=== PATIENT | male | born 1965 | race Caucasian/White ===

== ENCOUNTER 2016-10-04 18:05 | Emergency (ER) | payer OTHER ==
[~2016-10-04] VITALS: Ht 162.6 cm; Wt 86.6 kg
[2016-10-04] MEDS ORDERED: LEVOTHYROXINE137 MCG PO (18:27)
[2016-10-04] MEDS ORDERED: OMEPRAZOLE40 M1 PO (18:27)
[2016-10-04] MEDS ORDERED: VITAMIN D2000 UNI1 PO (18:27)
[2016-10-04] MEDS ORDERED: ATORVASTATIN CA20 M1 PO (18:27)
--- NOTE | 2016-10-04 18:27 | ED CARDIAC/CP/PALPITATIONS ---
History of Present Illness General Chief Complaint: Chest Pain Stated Complaint: CP X 1HR Source: patient, old records Exam Limitations: no limitations Vital Signs & Intake/Output Vital Signs & Intake/Output Vital Signs Date Time Temp Pulse Resp B/P B/P Pulse O2 O2 Flow FiO2 Mean Ox Delivery Rate 10/04 2302 80 20 111/61 100 Room Air 10/043 94 18 126/70 98 Room Air 10/04 1848 90 20 118/68 98 10/04 1841 98 Room Air 10/04 1818 97.1 102 16 115/80 98 Room Air Room Air Allergies Coded Allergies: No Known Allergies (10/04/16) Reconcile Medications Atorvastatin Calcium 20 MG TABLET 1 TAB PO DAILY CHOLESTEROL (Reported) Cholecalciferol (Vitamin D3) (Vitamin D) (Unknown Strength) TABLET (Unknown Dose) PO DAILY SUPPLEMENT (Reported) Levothyroxine Sodium 137 MCG TABLET 1 TAB PO DAILY THYROID (Reported) Omeprazole 40 MG CAPSULE.DR 1 CAP PO DAILY GI (Reported) Triage Note: PT TO TRIAGE WITH CHETS TIGHTNESS AND WHILE WALKING HAD A FEELING OF LIGHTHEADNESS, DIZZY AND SWEATING. PT STATES HE FELT THE SAME LAST NIGHT WHILE LAYING ONHTE COUCH. PT HAS NO CARDIAC HX. SKIN WARM AND DRY. PT DENIES TORUBLE BREATHING Triage Nurses Notes Reviewed? yes Onset: Abrupt Duration: minute(s):, better, resolved prior to arrival Timing: recent history Quality/Severity: mild, aching, pressure Location: RIGHT SIDED Radiation: no radiation Activities at Onset: none Prior Chest Pain/Card Workup: no prior chest pain Aspirin Today: 325 mg x 1, provided by ED Associated Symptoms: DIZZINESS HPI: 51-year-old male with history of hypothyroid, high cholesterol presents to ER for evaluation status post developing 2 episodes of intermittent ear the first episode came on while at rest watching TV last night. He states that he slept fine THIS morning when about his day without any complaints. He states about 45 minutes ago while walking around the store with his mother he began to feel dizzy and had similar symptoms which resolved on its own he has not taken anything for his symptoms denies any complaints at this time. No history of heart problems in the past however his father had a heart attack at 50. He does not smoke he states he had 2 years this afternoon while mowing the lawn. No other drug use he denies any other complaints at this time. Symptoms are not worse with exertion no pain with inspiration no cough no hemoptysis no dyspnea no abdominal pain Past History Travel History Traveled to [place] past 21 day No Medical History Any Pertinent Medical History? see below for history Neurological: NONE EENT: NONE Cardiovascular: hyperlipidemia Respiratory: NONE Gastrointestinal: NONE Hepatic: NONE Renal: NONE Musculoskeletal: NONE Psychiatric: NONE Endocrine: hypothyroidism Blood Disorders: NONE Cancer(s): NONE Surgical History Surgical History: non-contributory Psychosocial History What is your primary language Finnish Tobacco Use: Never used ETOH Use: occasional use Illicit Drug Use: denies illicit drug use Family History Hx Contributory? No Review of Systems Review of Systems Constitutional: Reports: see HPI. All Other Systems: Reviewed and Negative Comments Review of systems: See HPI, All other systems negative. Constitutional, no chills no fever, no malaise HEENT: No visual changes no sore throat no congestion, Cardiovascular: chest pain , no palpitation Skin: no rashes, no change in skin Respiratory: No dyspnea no cough no sputum GI: No nausea no vomiting, no diarrhea, : No dysuria No hematuria, Muscle skeletal: No joint pain, no joint swelling, no back pain, no neck pain, Neurologic: no headache Psych: No stress . Heme/endocrine: No bruising Immunology: No lymphadenopathy Physical Exam Physical Exam General Appearance: well developed/nourished, no apparent distress, alert Cardiovascular: regular rate/rhythm Comments: Well-developed well-nourished person in no acute distress HEENT: Normal EENT exam; PERRL, EOMI,HEAD is atraumatic. moist mucous membranes. Neck: Supple, normal range of motio Back: Nontender, no CVA tenderness. Full range of motion Cardiovascular: Regular rate and rhythms no murmurs rubs Respiratory: Chest nontender.There were no bony deformities, no asymmetry. No respiratory distress. Patient speaking in full complete sentences. Breath sounds clear to auscultation bilaterally: NO W/R/R Abdomen: Soft, nontender nondistended, no appreciable organomegaly. Normal bowel sounds. No rebound/guarding Extremity: No edema, full range of motion of extremities Neuro: Alert oriented x3, motor sensory normal, There were no obvious focal neurologic abnormalities. Skin: No appreciable rash on exposed skin, skin is warm and dry. Psych: Mood and affect is normal, memory and judgment is normal. Core Measures ACS in differential dx? Yes Severe Sepsis Present: No Septic Shock Present: No Progress Differential Diagnosis: AMI, atrial fibrillation, CHF/pulm edema, costochondritis, musculoskeletal pain, myocarditis, pancreatitis, pericarditis, pneumonia, pneumothorax, PSVT, pulmonary embolism, PVCs/PACs, unstable angina Plan of Care: Orders Procedure Date/time Status Regular Diet 10/05 B Active TROPONIN LEVEL 10/04 223 Complete EKG 10/04 223 Active Add-on Test (ER Only) 10/04 191 Active ETHANOL 10/04 1855 Complete Telemetry/Box Car Checker 10/04 183 Active TROPONIN LEVEL 10/04 1831 Complete MAGNESIUM 10/04 183 Complete LIPID PANEL 10/04 183 Complete COMPREHENSIVE METABOLIC PANEL 10/04 183 Complete CBC WITHOUT DIFFERENTIAL 10/04 1830 Complete EKG 10/04 1806 Active Laboratory Tests 10/04/16 2200: Troponin I < 0.01 10/04/161854: Anion Gap 13, Estimated GFR > 60, BUN/Creatinine Ratio 14.2, Glucose 94, Calcium 9.9, Magnesium 2.0, Total Bilirubin 1.0, AST 25, ALT 59, Alkaline Phosphatase 73 , Troponin I < 0.01, Total Protein 7.7, Albumin 4.7, Globulin 3.0, Albumin/ Globulin Ratio 1.6, Triglycerides 153 H, Cholesterol 141, LDL Cholesterol, Calc 71, HDL Cholesterol 40, Cholesterol/HDL Ratio 3, CBC w Diff NO MAN DIFF REQ, RBC 5.05, MCV 91.5, MCH 30.6, RDW 13.6, MPV 8.5, Gran % 66.8, Lymphocytes % 23.0, Monocytes % 8.8, Eosinophils % 1.0, Basophils % 0.4, Absolute Granulocytes 5.7, Absolute Lymphocytes 2.0, Absolute Monocytes 0.8 H, Absolute Eosinophils 0.1, Absolute Basophils 0, PUBS MCHC 33.5, Serum Alcohol < 10.0 LABS ORDERED, OLD RECORDS REVIEWED, PT DENIES ANY COMPLAINTS AT THIS TIME 1950 discussed with the patient at length all of his results today need for repeat troponin patient has been normal sinus on the monitor here without any complaints case was discussed with Dr. Mayer agrees with plan 2119 patient has been asymptomatic since coming into the ER. Continues to be normal sinus on the monitor pending repeat troponin case and ekg reviewed with dr moya agrees with plan I discussed with the patient at length all of their results. I had an extensive conversation regarding need for close follow up with their primary care physician/as well as drawing kiln operator this week as well as return precautions. I answered all of their questions, they feel comfortable with the plan and follow- up care. (ABIGAIL DARLING,ENEIDA) Diagnostic Imaging: Viewed by Me: Radiology Read. Discussed w/RAD: Radiology Read. Radiology Impression: PATIENT: VANDA FONTANA PRESENT AGE: 51 PATIENT ACCOUNT NO: [id number] : 67 LOCATION: [facility] ORDERING PHYSICIAN: ENEIDA DARLING SERVICE DATE: 10/04/16 EXAM TYPE: RAD - XRY-PORTABLE CHEST XRAY EXAMINATION: XR PORTABLE CHEST CLINICAL INFORMATION: Right-sided chest pain. COMPARISON: Chest x-ray 04-15. TECHNIQUE : Portable frontal view of the chest was obtained. FINDINGS: The lungs are well- expanded and clear without focal airspace consolidation. No pleural effusions or pneumothoraces are identified. Cardiomediastinal contours are within normal limits. Soft tissues are unremarkable. No acute osseous abnormality is identified. IMPRESSION: No acute pulmonary process. DICTATED BY: HEATHER LINDSEY MD DATE/TIME DICTATED:10/04/161934 ROTARY ENGINE ASSEMBLER:SHELBY DATE/TIME TRANSCRIBED:10/04/161934 CONFIDENTIAL, DO NOT COPY WITHOUT APPROPRIATE AUTHORIZATION. <Electronically signed in Other Vendor System> SIGNED BY: HEATHER LINDSEY MD 10/04/161938 Initial ED EKG: normal intervals, normal p-waves, normal QRS complex, normal sinus rhythm (80) Prior EKG: unchanged Repeat EKG: unchanged Rhythm Strip: normal sinus rhythm Departure Departure Time of Disposition: 2258 Disposition: HOME OR SELF CARE Condition: Stable Clinical Impression Primary Impression: Atypical chest pain Referrals: PATIENT HAS NO PRIMARY CARE DR SHADE PITTS PhD,ROBERT Deirdre Additional Instructions: Follow-up with drawing kiln operator Dr. LAGUERRE this week. Return to ER anytime sooner with any concerns. Departure Forms: Customer Survey General Discharge Information Critical Care Note Critical Care Note Critical Care Time: non-applicable
[2016-10-04 19:03] LABS: ABSOLUTE BASOPHIL COUNT 0 /CUMM (0.0-0.2); ABSOLUTE EOSINOPHIL COUNT 0.1 /CUMM (0.0-0.7); ABSOLUTE GRANULOCYTE CT 5.7 /CUMM (1.4-6.5); ABSOLUTE MONOCYTE COUNT 0.8 /CUMM (0.10-0.60); BASOPHIL % 0.4 % (0.0-2.0); GRANULOCYTE % 66.8 % (42.2-75.2); HEMATOCRIT 46.2 % (42-52); MEAN CORPUSCULAR HGB 30.6 PG (27.0-31.0); MEAN CORPUSCULAR HGB CONC 33.5 G/DL (33.0-37.0); MEAN CORPUSCULAR VOLUME 91.5 FL (80.0-94.0); MEAN PLATELET VOLUME 8.5 FL (7.4-10.4); PLATELET COUNT 210 /CUMM (130-400); RBC DISTRIBUTION WIDTH 13.6 % (11.5-14.5); RED BLOOD CELL CT 5.05 /CUMM (4.70-6.10); WHITE BLOOD CELL COUNT 8.6 /CUMM (4.8-10.8)
--- NOTE | 2016-10-04 19:39 | RADIOLOGY REPORT ---
EXAMINATION: XR PORTABLE CHEST CLINICAL INFORMATION: Right-sided chest pain. COMPARISON: Chest x-ray 04-15. TECHNIQUE: Portable frontal view of the chest was obtained. FINDINGS: The lungs are well-expanded and clear without focal airspace consolidation. No pleural effusions or pneumothoraces are identified. Cardiomediastinal contours are within normal limits. Soft tissues are unremarkable. No acute osseous abnormality is identified. IMPRESSION: No acute pulmonary process.
[2016-10-04 23:02] VITALS: BP 111/61
== END 2016-10-04 23:03 ==
LOC: ERH 18:05
PROVIDERS: Physician Assistant Medical
DX: R07.89 Other chest pain (principal)
CPT/HCPCS: 93005; 93010; G0480

== ENCOUNTER 2017-08-31 05:24 | Emergency (ER) | payer OTHER ==
[~2017-08-31] VITALS: Ht 162.6 cm; Wt 90.7 kg
[~2017-08-31 05:24] MED LIST: ATORVASTATIN CA20 M1 PO; LEVOTHYROXINE137 MCG PO; OMEPRAZOLE40 M1 PO; POLYTRIM EYE DR10 ML OPH; VITAMIN D2000 UNI1 PO
--- NOTE | 2017-08-31 05:36 | ED DYSPNEA/ASTHMA COMPLAINT ---
History of Present Illness General Chief Complaint: Dyspnea (COPD, CHF, Other) Stated Complaint: "I STOPPED BREATHING THIS MORNING" Source: patient Exam Limitations: no limitations Vital Signs & Intake/Output Vital Signs & Intake/Output Vital Signs Date Time Temp Pulse Resp B/P B/P Pulse O2 O2 Flow FiO2 Mean Ox Delivery Rate 08/31 0858 98.1 66 18 119/80 98 Room Air 08/31 0751 97.9 66 18 124/83 99 Room Air 08/31 0532 99 Room Air 08/31 0529 97.6 78 18 142/71 98 Room Air Allergies Coded Allergies: No Known Allergies (10/04/16) Triage Note: PT FROM HOME C/O "I STOPPED BREATHING" PT STATES AROUND 0400 PT WAS SLEEPING AND AWOKE BY NOT BREATHING. PTS VSS. PT STATES S/S OF DIZZINESS AND ROSS. PT DENIES CP, SOB, JAW OR BACK PAIN. PT STATES LEFT ARM NUMBNESS/TINGLING. PT A&0X3. Triage Nurses Notes Reviewed? yes Onset: Abrupt Duration: 2 second episode Timing: single episode today Severity: moderate Activities at Onset: sleep Prior Episodes/Possible Cause: no prior episodes Modifying Factors: Improves With: rest. Associated Symptoms: diaphoresis HPI: 52 yo gentleman in prior good health presents with 2 second episode prior to arrival of chest squeezing, associated with dizziness, diaphoresis, and "couldn't breath." He notes that the symptoms resolved, and that he now feels well, "but I got really scared, like something bad was happeneing. He notes no fever, chills, headache, wheezing, cough, reflux type symptoms. He is otherwise well. (Joseline PITTS,Rory Carmichael) Reconcile Medications Atorvastatin Calcium 20 MG TABLET 1 TAB PO DAILY CHOLESTEROL (Reported) Levothyroxine Sodium 137 MCG TABLET 1 TAB PO DAILY AC THYROID (Reported) (Buster Christine DO) Past History Travel History Traveled to [place] past 21 day No Medical History Any Pertinent Medical History? see below for history Neurological: NONE EENT: NONE Cardiovascular: hyperlipidemia Respiratory: NONE Gastrointestinal: NONE Hepatic: NONE Renal: NONE Musculoskeletal: NONE Psychiatric: NONE Endocrine: hypothyroidism Blood Disorders: NONE Cancer(s): NONE Tetanus Vaccine: 03/18/17 Surgical History Surgical History: non-contributory Psychosocial History What is your primary language Turkish Tobacco Use: Never used Family History Hx Contributory? No (Rory Trevizo MD) Review of Systems Review of Systems Constitutional: Reports: no symptoms. EENTM: Reports: no symptoms. Respiratory: Reports: no symptoms. Cardiovascular: Reports: no symptoms. GI: Reports: no symptoms. Genitourinary: Reports: no symptoms. Musculoskeletal: Reports: no symptoms. Skin: Reports: no symptoms. Neurological/Psychological: Reports: no symptoms. Hematologic/Endocrine: Reports: no symptoms. Immunologic/Allergic: Reports: no symptoms. All Other Systems: Reviewed and Negative (Joseline PITTS,Rory Carmichael) Physical Exam Physical Exam General Appearance: well developed/nourished, no apparent distress Head: atraumatic, normal appearance Eyes: Bilateral: normal appearance, PERRL, EOMI. Ears, Nose, Throat: normal pharynx, normal ENT inspection Neck: normal inspection, supple, full range of motion Respiratory: normal breath sounds, chest non-tender, no respiratory distress, quiet respiration, lungs clear Cardiovascular: regular rate/rhythm Gastrointestinal: normal bowel sounds, soft, non-tender, no organomegaly Rectal: normal exam Extremities: normal inspection, normal capillary refill, normal range of motion, no edema Neurologic/Psych: no motor/sensory deficits, awake, alert, oriented x 3 Skin: intact, normal color, warm/dry Core Measures ACS in differential dx? No CVA/TIA Diagnosis No Sepsis Present: No Sepsis Focused Exam Completed? No (Joseline PITTS,Rory Carmichael) Progress Differential Diagnosis: acs vs panic vs other. Plan of Care: Orders Procedure Date/time Status TROPONIN LEVEL 08/31 829 Complete EKG 08/31 829 Active D-DIMER 08/31 721 Complete THYROID STIMULATING HORMONE 08/31 553 Complete TROPONIN LEVEL 08/31 553 Complete HEPATIC FUNCTION PANEL 08/31 553 Complete D-DIMER 08/31 553 Complete CBC WITHOUT DIFFERENTIAL 08/31 553 Complete BASIC METABOLIC PANEL 08/31 553 Complete EKG 08/31 553 Active Laboratory Tests 08/31/17 0835: Troponin I < 0.01 08/31/17 0733: D-Dimer High Sensitivty < 200 08/31/17 0604: Anion Gap 10, Estimated GFR 58 L, BUN/Creatinine Ratio 13.8, Glucose 108 H, Calcium 9.4, Total Bilirubin 0.9, Direct Bilirubin 0.3, AST 46, ALT 50, Alkaline Phosphatase 43, Troponin I < 0.01, Total Protein 7.3, Albumin 4.6, TSH 238.000 H, D-Dimer High Sensitivty < 200, CBC w Diff NO MAN DIFF REQ, RBC 4.74, MCV 91.8 , MCH 30.5, MCHC 33.2, RDW 13.8, MPV 8.7, Gran % 47.4, Lymphocytes % 41.0, Monocytes % 7.1, Eosinophils % 3.6, Basophils % 0.9, Absolute Granulocytes 2.8, Absolute Lymphocytes 2.5, Absolute Monocytes 0.4, Absolute Eosinophils 0.2, Absolute Basophils 0.1 Diagnostic Imaging: Viewed by Me: Radiology Read. Discussed w/RAD: Radiology Read. CXR Impression: PATIENT: VANDA FONTANA PRESENT AGE : 52 PATIENT ACCOUNT NO: [id number] : 67 LOCATION: [facility] ORDERING PHYSICIAN: Rory Trevizo MD SERVICE DATE: 08/31/17 EXAM TYPE: RAD - XRY-PORTABLE CHEST XRAY EXAMINATION: XR PORTABLE CHEST CLINICAL INFORMATION: Chest pain COMPARISON: 10/04/2016 TECHNIQUE: Portable frontal view of the chest was obtained. FINDINGS: The lungs are well expanded. There is no focal consolidation, edema, or effusion. No pneumothorax. There is a 0.5 cm nodular opacity at the left lung base which is not definitively seen on previous imaging. The cardiomediastinal silhouette is within normal limits. No acute osseous abnormality. IMPRESSION: No acute pulmonary findings. 0.5 cm nodular opacity seen at the left lung base which is not definitively seen on priors. Consider nonemergent chest CT to further evaluate. DICTATED BY: aCrmelo Roman MD DATE/TIME DICTATED:08/31/17631 HEEL PAINTER:SHELBY DATE/TIME TRANSCRIBED:08/31/17631 CONFIDENTIAL, DO NOT COPY WITHOUT APPROPRIATE AUTHORIZATION. <Electronically signed in Other Vendor System> SIGNED BY: Carmelo Roman MD 08/31/17638 Initial ED EKG: nsr, without acute changes... left axis deviation Hand-Off Endorsed To: Buster Christine DO Endorsed Time: 0700 Pending: labs, other (FOLLOW UP TROP/EKG) (Joseline PITTS,Rory Carmichael) Initial ED EKG: initial ECG performed at [address] Trevizo. Normal sinus rhythm at 65 bpm, normal intervals, normal ST segments, mild left axis deviation, no other ischemia or abnormality. Prior EKG: changed (mild change in V1/V2) Comments: I evaluated the patient after assuming care from Dr. Trevizo overnight. I agree with his planned disposition for discharge home assuming a negative second troponin at 8:30 AM and repeat ECG without interval ischemic changes. Patient does not have a reprographics associate but we have provided a referral and his discharge paperwork. He does have a primary physician with whom he plans to follow-up in the office this week. He has had no further chest pain or dyspnea episodes since this very brief 1.5 second episode which originally concerned him this morning. No other concerns at this time, medical screening examination otherwise negative. Update: Repeat ECG showed nonspecific changes in V1 and V2 which I discussed with Dr. Thompson from cardiology who was not concerned for acute ischemia. The patient has not had no further symptoms as of 10:23 AM. Repeat troponin was negative, and the patient was discharged in stable condition with plans to follow up with cardiology. No further acute events are discharged home in stable condition. (Buster Christine DO) Departure Departure Disposition: STILL A PATIENT Condition: Stable Clinical Impression Primary Impression: Chest pain Referrals: Erick Najera MD Departure Forms: Customer Survey General Discharge Information (Rory Trevizo MD) Critical Care Note Critical Care Note Critical Care Time: non-applicable (Rory Trevizo MD)
[2017-08-31 06:28] LABS: ABSOLUTE BASOPHIL COUNT 0.1 /CUMM (0.0-0.2); ABSOLUTE EOSINOPHIL COUNT 0.2 /CUMM (0.0-0.7); ABSOLUTE GRANULOCYTE CT 2.8 /CUMM (1.4-6.5); ABSOLUTE LYMPH COUNT 2.5 /CUMM (1.2-3.4); ABSOLUTE MONOCYTE COUNT 0.4 /CUMM (0.10-0.60); BASOPHIL % 0.9 % (0.0-2.0); EOSINOPHIL % 3.6 % (0-5); GRANULOCYTE % 47.4 % (42.2-75.2); HEMATOCRIT 43.5 % (42-52); MEAN CORPUSCULAR HGB 30.5 PG (27.0-31.0); MEAN CORPUSCULAR HGB CONC 33.2 G/DL (33.0-37.0); MEAN CORPUSCULAR VOLUME 91.8 FL (80.0-94.0); MEAN PLATELET VOLUME 8.7 FL (7.4-10.4); PLATELET COUNT 201 /CUMM (130-400); RBC DISTRIBUTION WIDTH 13.8 % (11.5-14.5); RED BLOOD CELL CT 4.74 /CUMM (4.70-6.10)
--- NOTE | 2017-08-31 06:39 | RADIOLOGY REPORT ---
EXAMINATION: XR PORTABLE CHEST CLINICAL INFORMATION: Chest pain COMPARISON: 10/04/2016 TECHNIQUE: Portable frontal view of the chest was obtained. FINDINGS: The lungs are well expanded. There is no focal consolidation, edema, or effusion. No pneumothorax. There is a 0.5 cm nodular opacity at the left lung base which is not definitively seen on previous imaging. The cardiomediastinal silhouette is within normal limits. No acute osseous abnormality. IMPRESSION: No acute pulmonary findings. 0.5 cm nodular opacity seen at the left lung base which is not definitively seen on priors. Consider nonemergent chest CT to further evaluate.
[2017-08-31 09:58] VITALS: BP 119/80
== END 2017-08-31 10:29 ==
LOC: ERH 05:24
PROVIDERS: Pediatrics
DX: R07.89 Other chest pain (principal)
CPT/HCPCS: 71045; 93005; 93010